=== PATIENT | male | born 1950 | race Caucasian/White ===

== ENCOUNTER 2018-06-12 09:27 | Outpatient (CLI) | payer MEDICARE, MEDICAID ==
--- NOTE | 2018-06-12 12:01 | ULT ---
ABDOMINAL ULTRASOUND: Date: 06/12/18 HISTORY: Hepatitis C. FINDINGS: Real-time imaging of the upper abdomen was performed. This shows mildly distended gallbladder without signs of gallstones. Questionable slight wall thickening on some of the images is seen. Technologist does describe positive ultrasound Hickey's sign. The common duct is in the 5 mm range. Liver parench yma is heterogeneous, but no focal discrete masses are seen. The spleen measures 11.8 cm in length. I t appears mildly prominent. Right and left kidneys are within normal limits of size. There is a 1.4 cm left renal cyst present. T he pancreas is partially obscured. The abdominal aorta and IVC regions appear unremarkable. IMPRESSION: 1. Coarse echotexture to the liver. On some of these images, there appears to be a slightly nodular contour to the surface of the liver suggesting possibly cirrhotic change. 2. Mildly distended gallbladder. Technologist describes positive ultrasound Hickey's sign, but no ga llstones identified. Common duct is normal in caliber. POS: [facility]
== END 2018-06-12 09:28 | disposition home or self-care (01) ==
LOC: MADULT 09:27
PROVIDERS: ATTEND Internal Medicine Gastroenterology
DX: B18.2 Chronic viral hepatitis C (principal); K82.8 Other specified diseases of gallbladder; R93.2 Abnormal findings on diagnostic imaging of liver and biliary tract
CPT/HCPCS: 76700

== ENCOUNTER 2019-05-17 10:35 | Outpatient (CLI) | payer MEDICARE, OTHER ==
[2019-05-17 11:05] LABS: ALT (SGPT) 16 U/L (8-55); AST (SGOT) 36 U/L (5-34); Albumin 3.3 g/dL (3.4-4.8); Alkaline Phosphatase 115 U/L (40-110); Anion Gap 13 mmol/L (10-20); BUN (Urea Nitrogen) 17 mg/dL (8.4-25.7); Bilirubin, Total 1.2 mg/dL (0.2-1.2); Calc. Creatinine Clearance 0 mL/min (70-130); Calcium 8.9 mg/dL (7.8-10.44); Carbon Dioxide 21 mmol/L (23-31); Chloride 108 mmol/L (98-107); Estimated GFR-MDRD 43; Glucose 169 mg/dL (80-115); Potassium 4.5 mmol/L (3.5-5.1); Protein, Total 8.3 g/dL (5.8-8.1); Sodium 137 mmol/L (136-145)
--- NOTE | 2019-05-17 11:07 | RAD ---
EXAM: XR Chest Pa Lat STANDARD PROVIDED CLINICAL HISTORY: Bilateral leg edema COMPARISON: None FINDINGS: Heart size appears normal. There is dense parenchymal opacity involving the right lower lobe with ass ociated right pleural fluid. The left lung appears clear. There is no evidence for pneumothorax. IMPRESSION: Dense right lower lobe parenchymal opacity that may reflect pneumonia in the appropriate clinical con text. Associated moderate right pleural fluid. Follow-up is recommended.
== END 2019-05-17 10:36 | disposition home or self-care (01) ==
LOC: MADLABBHPM 10:35
PROVIDERS: ATTEND Family Medicine
DX: R60.0 Localized edema (principal)
CPT/HCPCS: 36415; 71046; 80053; 83880

== ENCOUNTER 2019-06-06 10:38 | Outpatient (CLI) | payer MEDICARE, OTHER ==
--- NOTE | 2019-06-06 11:02 | RAD ---
EXAM: Two views chest PROVIDED CLINICAL HISTORY: Pneumonia right lung. COMPARISON: 05/17/2019 FINDINGS: Parenchymal consolidation right lung base is again seen and similar to prior study and again may be r eflective of pneumonia. Small right pleural effusion is again present, the pleural fluid is appear mildly increased from prior exam. Left lung remains clear. Right cardiac border is obscured. Pulmonar y vasculature is similar to prior study. No other interval change from prior exam IMPRESSION: Persistent pleural and parenchymal changes right lung base with mild increase in right pleural effusi on. Dense parenchymal consolidation is again seen which again could be reflective of pneumonia, but there has been no interval improvement when compared to the prior exam. CT scan thorax is recommended for further evaluation.
[2019-06-06 11:09] LABS: ALT (SGPT) 17 U/L (8-55); AST (SGOT) 31 U/L (5-34); Albumin 3.3 g/dL (3.4-4.8); Alkaline Phosphatase 111 U/L (40-110); Anion Gap 13 mmol/L (10-20); BUN (Urea Nitrogen) 27 mg/dL (8.4-25.7); Bilirubin, Total 1.2 mg/dL (0.2-1.2); Calc. Creatinine Clearance 0 mL/min (70-130); Calcium 8.5 mg/dL (7.8-10.44); Carbon Dioxide 21 mmol/L (23-31); Chloride 104 mmol/L (98-107); Estimated GFR-MDRD 38; Globulin 5.2 g/dL (2.4-3.5); Glucose 218 mg/dL (80-115); Potassium 4.1 mmol/L (3.5-5.1); Protein, Total 8.5 g/dL (5.8-8.1); Sodium 134 mmol/L (136-145)
[2019-06-06 21:28] LABS: Hemoglobin A1c 5.2 % (4.0-6.0)
== END 2019-06-06 10:39 | disposition home or self-care (01) ==
LOC: MADLABBHPM 10:38
PROVIDERS: ATTEND Family Medicine
DX: J90 Pleural effusion, not elsewhere classified (principal); J18.9 Pneumonia, unspecified organism; N18.3 Chronic kidney disease, stage 3 (moderate); R73.03 Prediabetes; J98.4 Other disorders of lung
CPT/HCPCS: 36415; 71046; 80053; 82306; 83036

== ENCOUNTER 2019-07-06 09:13 | Outpatient (CLI) | payer MEDICARE, OTHER ==
--- NOTE | 2019-07-06 10:10 | ULT ---
EXAM: US Abdominal CLINICAL HISTORY: Bilateral lower extremity edema. Cirrhosis. COMPARISON: 06/12/2018 FINDINGS: Pancreas: Obscured by bowel gas IVC: Visualized IVC has a normal caliber. Aorta: Visualized aorta has a normal caliber. Liver:Coarse echotexture liver due to hepatic steatosis or hepatocellular disease. Limited evaluation for hepatic masses and intrahepatic biliary dilatation. There is nodularity hepatic margin, compatible with patient's history process Gallbladder: No sonographic evidence of cholelithiasis or pericholecystic fluid. Gallbladder wall is thickened measuring 0.45 cm. Hickey's sign:Negative CBD: Poorly defined. Portal vein: Patent. Right kidney: Normal cortical echotexture. No hydronephrosis. Right kidney measuring 5.4 x 5.3 x 10. 9 cm in length. Left kidney: Anechoic focus with posterior acoustic enhancement in the left renal cortex, measuring 2 .0 x 1.4 x 1.3 cm. No hydronephrosis. Left kidney measuring 5.6 x 6.0 x 11.3 cm in length Spleen: Mild splenomegaly. Spleen measures 13.2 cm IMPRESSION: 1. Heterogeneous echotexture liver compatible with patient's history of cirrhosis. Limited evaluation for hepatic masses. 2. Suboptimal evaluation the common bile duct. 3. Left renal cyst.
== END 2019-07-06 09:14 | disposition home or self-care (01) ==
LOC: MADULT 09:13
PROVIDERS: ATTEND Family Medicine
DX: R60.0 Localized edema (principal); N28.1 Cyst of kidney, acquired; R93.2 Abnormal findings on diagnostic imaging of liver and biliary tract
CPT/HCPCS: 93975

== ENCOUNTER 2019-07-20 10:46 | Outpatient (CLI) | payer MEDICARE, OTHER ==
--- NOTE | 2019-07-20 11:20 | RAD ---
EXAM: Two views chest PROVIDED CLINICAL HISTORY: Pleural effusion. COMPARISON: 06/06/2019 FINDINGS: Pleural and parenchymal changes are again seen at the right lung base likely due to right pleural eff usion and probable atelectasis. However, superimposed persistent infiltrate/pneumonia could not be excluded. Left lung remains clear. Right cardiac border is obscured. There does appear to be mild tra cheal deviation to the right. IMPRESSION: Stable chest with persistent pleural and parenchymal changes right lung base which has not significan tly changed. CT scan thorax is suggested for further evaluation.
[2019-07-20 11:32] LABS: Chloride 107 mmol/L (98-107); Potassium 4.2 mmol/L (3.5-5.1); Sodium 136 mmol/L (136-145)
[2019-07-20 11:58] LABS: ALT (SGPT) 21 U/L (8-55); AST (SGOT) 38 U/L (5-34); Albumin 3.4 g/dL (3.4-4.8); Alkaline Phosphatase 121 U/L (40-110); Anion Gap 14 mmol/L (10-20); BUN (Urea Nitrogen) 20 mg/dL (8.4-25.7); Bilirubin, Total 1.1 mg/dL (0.2-1.2); Calc. Creatinine Clearance 0 mL/min (70-130); Calcium 8.2 mg/dL (7.8-10.44); Carbon Dioxide 18 mmol/L (23-31); Estimated GFR-MDRD 39; Globulin 4.9 g/dL (2.4-3.5); Glucose 249 mg/dL (80-115); Protein, Total 8.3 g/dL (5.8-8.1)
[2019-07-20 16:53] LABS: Hemoglobin A1c 4.8 % (4.0-6.0)
== END 2019-07-20 10:47 | disposition home or self-care (01) ==
LOC: MADRAD 10:46
PROVIDERS: ATTEND Family Medicine
DX: J90 Pleural effusion, not elsewhere classified (principal); E11.9 Type 2 diabetes mellitus without complications
CPT/HCPCS: 36415; 71046; 80053; 83036

== ENCOUNTER 2019-11-21 15:28 | Outpatient (CLI) | payer MEDICARE, MEDICAID ==
--- NOTE | 2019-11-21 17:11 | CT ---
CT CHEST WITHOUT CONTRAST: 11/21/19 HISTORY: Pleural effusion. Abnormal chest x-ray from July of 2019. COMPARISON: Radiograph of chest 07/20/19. FINDINGS: There is a chronic large right layering pleural effusion with a large focus of right lower lobe round atelectasis. In the upper abdomen there is high grade hepatic cirrhosis with abnormal decreased atte nuation of the right lobe of the liver as well as splenomegaly. The umbilical vein is recanalized. Abnormal right sided visceral and parietal pleural thickening. Multiple Schmorl's nodes throughout the thoracic spine. No acute fracture. Old right posterior 10th rib fracture. Old left anterior third, fourth and fifth rib fractures. No ac [place] rib fracture. Aortic contour is nonaneurysmal. Right sided hemithorax with volume loss. IMPRESSION: 1. Persistent right sided hepatic hydrothorax with chronic right layering pleural effusion with a large focus of round atelectasis within the right lung base. 2. Severe hepatic cirrhosis with abnormal hypoattenuation of the right lobe of the liver concern ing for possible malignant process. Liver protocol CT or MRI is recommended. 3. Hepatic cirrhosis with portal hypertension. 4. Old bilateral rib fractures. POS: [facility]
== END 2019-11-21 15:29 | disposition home or self-care (01) ==
LOC: MADCT 15:28
PROVIDERS: ATTEND Family Medicine
DX: R93.89 Abnormal findings on diagnostic imaging of other specified body structures (principal); J90 Pleural effusion, not elsewhere classified; J98.11 Atelectasis; K74.60 Unspecified cirrhosis of liver; K76.6 Portal hypertension
CPT/HCPCS: 71250

== ENCOUNTER 2020-03-20 15:50 | Emergency (ER) | payer MEDICARE, MEDICAID ==
[2020-03-20 18:11] LABS: INR-International Normal Ratio 1.1; PTT 30.7 sec (22.9-36.1); Prothrombin Time 13.9 sec (12.0-14.7)
[2020-03-20 18:20] LABS: ALT (SGPT) 24 U/L (8-55); AST (SGOT) 99 U/L (5-34); Albumin 2.5 g/dL (3.4-4.8); Alkaline Phosphatase 187 U/L (40-110); Anion Gap 14 mmol/L (10-20); BUN (Urea Nitrogen) 15 mg/dL (8.4-25.7); Bilirubin, Total 3.7 mg/dL (0.2-1.2); Calc. Creatinine Clearance 0 mL/min (70-130); Carbon Dioxide 20 mmol/L (23-31); Chloride 103 mmol/L (98-107); Globulin 5.5 g/dL (2.4-3.5); Glucose 112 mg/dL (80-115); Potassium 4.1 mmol/L (3.5-5.1); Sodium 133 mmol/L (136-145)
[2020-03-20 18:41] LABS: #Basophils 0.1 thou/uL (0.0-0.2); #Eosinphils 1.1 thou/uL (0.0-0.7); #Lymphocytes 1.3 thou/uL (1.20-3.40); #Monocytes 0.6 thou/uL (0.11-0.59); %Basophils 1.8 % (0.0-1.0); %Eosinophils 15.6 % (0.0-10.0); %Lymphocytes 17.8 % (21.0-51.0); %Monocytes 8.5 % (0.0-10.0); %Neutrophils 56.3 % (42.0-75.0); Anisocytosis SLIGHT = 6-15 cells (100X) (0-5/hpf); Hemoglobin 11.8 g/dL (14.0-18.0); Hypochromia SLIGHT = 6-15 cells (100X) (0-5/hpf); MDiff Complete? YES; Mean Corpuscular HGB CONC 36.2 g/dL (32.0-36.0); Mean Corpuscular Hemoglobin 34.5 pg (27.0-31.0); Mean Corpuscular Volume 95.2 fL (78.0-98.0); Mean Platelet Volume 6.4 fL (7.4-10.4); Platelet Count 118 thou/uL (130-400); Platelet Morphology Comment Appears Decreased; RBC Distribution Width 13.5 % (11.5-14.5); Red Blood Cell (RBC) Count 3.43 mill/uL (4.70-6.10); White Blood Cell (WBC) Count 7.1 thou/uL (4.8-10.8)
[2020-03-20] MEDS ORDERED: Furosemide 40 MG/4 ML VIAL ONE (18:57)
== END 2020-03-20 22:32 | disposition short-term general hospital (02) ==
LOC: MADERS 15:50
DX: R18.8 Other ascites (principal); I10 Essential (primary) hypertension; F17.210 Nicotine dependence, cigarettes, uncomplicated
CPT/HCPCS: 80053; 82140; 85025; 85610; 85730; 96374; J1940